=== PATIENT | male | born 1985 | race Caucasian/White ===

== ENCOUNTER → 2019-10-08 | Outpatient (CLI) | payer OTHER | LOC: GMAL 10:20 | PROVIDERS: ATTEND Family Medicine | DX: D50.8 Other iron deficiency anemias (principal) ==

== ENCOUNTER → 2020-02-13 | Outpatient (CLI) | payer OTHER | LOC: GMAL 11:00 | PROVIDERS: ATTEND Family Medicine | DX: D50.8 Other iron deficiency anemias (principal); I10 Essential (primary) hypertension; E11.9 Type 2 diabetes mellitus without complications; E78.2 Mixed hyperlipidemia ==